=== PATIENT | female | born 1990 | race Caucasian/White ===

== ENCOUNTER 2018-07-12 13:33 | Emergency (ER) | payer BC ==
[2018-07-12 14:24] VITALS: BP 123/81
--- NOTE | 2018-07-12 14:29 | UC ---
Ear Complaint HPI - HPI Summary HPI Summary: 27 yo female presents with RIGHT ear pain since this morning - pain has progressively gotten worse as the day has gone on. Pain in ear canal. Denies fever, chills, sinus symptoms, sore throat, headache, dizziness. - History of Current Complaint Chief Complaint: UCEar Stated Complaint: EAR PAIN Hx Obtained From: Patient Hx Last Menstrual Period: mirena Onset/Duration: Sudden Onset Severity Initially: Moderate Severity Currently: Moderate Pain Intensity: 7 Pain Scale Used: 0-10 Numeric - Allergies/Home Medications Allergies/Adverse Reactions: Allergies Allergy/AdvReac Type Severity Reaction Status Date / Time No Known Allergies Allergy Verified 07/12/18 14:25 PMH/Surg Hx/FS Hx/Imm Hx - Additional Past Medical History Additional PMH: None - Surgical History Surgical History: None - Family History Known Family History: Positive: None - Social History Occupation: Employed Full-time Lives: With Family Alcohol Use: Occasionally Substance Use Type: None Smoking Status (MU): Never Smoked Tobacco Review of Systems All Other Systems Reviewed And Are Negative: Yes Constitutional: Positive: Negative Skin: Positive: Negative Eyes: Positive: Negative ENT: Positive: Ear Ache Respiratory: Positive: Negative Cardiovascular: Positive: Negative Gastrointestinal: Positive: Negative Neurovascular: Positive: Negative Neurological: Positive: Negative Psychological: Positive: Negative Physical Exam - Summary Physical Exam Summary: GENERAL: NAD. WDWN. No pain distress. SKIN: No rashes, sores, lesions, or open wounds. HEENT: Head: AT/NC Eyes: EOM intact. Conjunctiva clear without inflammation or discharge. Ears: Hearing grossly normal. RIGHT TM intact without erythema or bulging. Canal with mild erythema and scant white/yellow discharge. Moderate TTP at external meatus and tragus manipulation. Nose: Nasal mucosa pink and moist. NTTP maxillary and frontal sinus. Throat: Posterior oropharynx without exudates, erythema, or tonsillar enlargement. Uvula midline. NECK: Supple. Nontender. No lymphadenopathy. CHEST: CTAB. No r/r/w. No accessory muscle use. Breathing comfortably and in no distress. CV: RRR. Without m/r/g. Pulses intact. NEURO: Alert. PSYCH: Age appropriate behavior. Triage Information Reviewed: Yes Vital Signs: Initial Vital Signs Temp 98.7 F 07/12/18 14:21 Pulse 73 01/04/19 14:21 Resp 18 07/12/18 14:21 BP 123/81 07/12/18 14:21 Pulse Ox 100 07/12/18 14:21 Vital Signs Reviewed: Yes Ear Complaint Course/Dx - Course Course Of Treatment: Right otitis externa - Differential Dx/Diagnosis Provider Diagnosis: Right otitis externa Discharge - Sign-Out/Discharge Documenting (check all that apply): Patient Departure All imaging exams completed and their final reports reviewed: No Studies - Discharge Plan Condition: Stable Disposition: HOME Prescriptions: Ofloxacin 0.3% (Ear Drop)* [Floxin 0.3% OTIC.JESUS (Ear Drop)] 5 drop RIGHT EAR DAILY #1 btl Patient Education Materials: Otitis Externa (ED) Referrals: Venkata Balbuena DO [Primary Care Provider] - Additional Instructions: If you develop a fever, shortness of breath, chest pain, new or worsening symptoms - please call your PCP or go to the ED. - Billing Disposition and Condition Condition: STABLE Disposition: Home
== END 2018-07-12 14:41 | disposition home or self-care (01) ==
LOC: UCEAST 13:33
DX: H60.91 Unspecified otitis externa, right ear (principal)
CPT/HCPCS: 99212; G0463

== ENCOUNTER 2019-01-16 16:03 | Emergency (ER) | payer BC ==
[2019-01-16 17:32] VITALS: BP 119/76
--- NOTE | 2019-01-16 17:40 | UC ---
Throat Pain/Nasal Phu HPI - HPI Summary HPI Summary: Sore throat x 4 days with malaise and low grade fever, No infectious contacts, no other symptoms. Nodes enlarged. - History of Current Complaint Chief Complaint: UCRespiratory Stated Complaint: SORE THROAT Time Seen by Provider: 01/16/19 17:34 Hx Obtained From: Patient Hx Last Menstrual Period: October (has IUD) ?: No Onset/Duration: Gradual Onset, Lasting Days - 5 Pain Intensity: 5 Cough: None Associated Signs & Symptoms: Positive: Dysphagia, Fever - Epiglottits Risk Factors Epiglottis Risk Factors: Negative - Allergies/Home Medications Allergies/Adverse Reactions: Allergies Allergy/AdvReac Type Severity Reaction Status Date / Time No Known Allergies Allergy Verified 01/16/19 17:27 Home Medications: Home Medications Ibuprofen 200 mg PO DAILY 01/16/19 [History Confirmed 01/16/19] Levonorgestrel (Iud) [Mirena IUD] 0 mcg 01/16/19 [History] PMH/Surg Hx/FS Hx/Imm Hx Previously Healthy: Yes - Surgical History Surgical History: None - Family History Known Family History: Positive: None, Non-Contributory - Social History Occupation: Employed Full-time Lives: With Family Alcohol Use: Occasionally Substance Use Type: None Smoking Status (MU): Never Smoked Tobacco Review of Systems All Other Systems Reviewed And Are Negative: Yes Constitutional: Positive: Fever, Fatigue Respiratory: Positive: Negative Cardiovascular: Positive: Negative Gastrointestinal: Positive: Negative Genitourinary: Positive: Negative, Other - sexually active, no discharge, same partner x 1 month, no oral intercourse. Motor: Positive: Negative Neurovascular: Positive: Negative Musculoskeletal: Positive: Negative Neurological: Positive: Negative Psychological: Positive: Negative Physical Exam Triage Information Reviewed: Yes Appearance: No Pain Distress, Ill-Appearing - looks mildly unwell Vital Signs: Initial Vital Signs Temp 99.0 F 01/16/19 17:28 Pulse 62 01/16/19 17:28 Resp 18 01/16/19 17:28 BP 119/76 01/16/19 17:28 Pulse Ox 97 01/16/19 17:28 Eyes: Positive: Conjunctiva Clear ENT: Positive: Pharyngeal erythema, Tonsillar swelling, Tonsillar exudate - bilateral deeply erythematous tonsils with mild swelling Dental Exam: Normal Neck: Positive: Supple, Nontender, Enlarged Nodes @ - tonsillar nodes enlarged. Respiratory: Positive: Lungs clear, Normal breath sounds Cardiovascular: Positive: RRR, No Murmur Musculoskeletal Exam: Normal Neurological Exam: Normal Psychological Exam: Normal Skin Exam: Normal Diagnostics - Laboratory Lab Results: rapid strep negative. Throat Pain/Nasal Course/Dx - Course Course Of Treatment: given severe erythyma and upcoming travel, will treat with amoxicillin. - Differential Dx/Diagnosis Differential Diagnosis/HQI/PQRI: Pharyngitis, Tonsillitis, URI Provider Diagnosis: Tonsillitis Discharge - Sign-Out/Discharge Documenting (check all that apply): Patient Departure All imaging exams completed and their final reports reviewed: No Studies - Discharge Plan Condition: Stable Disposition: HOME Prescriptions: Amoxicillin PO (*) [Amoxicillin 875 MG (*)] 875 mg PO BID #20 tab Patient Education Materials: Tonsillitis (ED) Referrals: Venkata Balbuena DO [Primary Care Provider] - Additional Instructions: You have a prescription for amoxicillin to initiate iif the sore throat persists. This could be a tonsillitis caused by a bacteria other than strep; mononucleosus s another possibility. - Billing Disposition and Condition Condition: STABLE Disposition: Home
== END 2019-01-16 18:00 | disposition home or self-care (01) ==
LOC: UCEAST 16:03
DX: J03.90 Acute tonsillitis, unspecified (principal)
CPT/HCPCS: 87651; 99212; G0463